=== PATIENT | female | born 1980 | race Caucasian/White ===

== ENCOUNTER 2018-01-06 17:35 | Emergency (ER) | payer SELFPAY ==
[2018-01-06 18:15] VITALS: BP 119/72
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
== END 2018-01-06 19:12 | disposition home or self-care (01) ==
LOC: UCCORT 17:35
DX: H92.01 Otalgia, right ear (principal); R68.84 Jaw pain; F19.20 Other psychoactive substance dependence, uncomplicated; F41.9 Anxiety disorder, unspecified
CPT/HCPCS: 99201; G0463